=== PATIENT | male | born 1980 | race Caucasian/White ===

== ENCOUNTER → 2017-01-11 | Day surgery (SDC) | payer MEDICARE ==
[~2017-01-11] VITALS: Ht 182.9 cm; Wt 140.5 kg
[~2017-01-11] MED LIST: ARIPIPRAZOLE20 MG PO; AUSTEDO PO; CLONAZEPAM0.5 MG PO; COZAAR50 MG PO; CPAP INH; CYMBALTA60 MG PO; DESYREL100 MG PO; FLEXERIL10 MG PO; LEVOTHROID(SY175 MCG PO; LOPRESSOR25 MG PO; MYSOLINE50 M1 PO; NORCO 5-325 TA1 EACH PO; OMEPRAZOLE40 MG PO; XARELTO20 MG PO
--- NOTE | ~2017-01-11 | OR ---
PATIENT'S NAME: EMILY MARTIN [facility] AGE: 36 Y [address] ROOM: [place] [address] LOCATION: [facility] [place] ADMIT DATE: 01/11/2017 OR/Procedure Report DISCHARGE DATE: FAMILY PHYSICIAN: Diego Vidal MD ATTENDING PHYSICIAN: Delio Heath SURGEON: Delio Heath MD GROUP ACCOUNT DIRECTOR: DATE OF PROCEDURE: 01/11/2017 PREOPERATIVE DIAGNOSES: 1. Left flank pain. 2. Significant microscopic hematuria. 3. Known left nephrolithiasis. 4. Chronic back pain, status post instrumentation and with pain pump. 5. History of Hodgkin disease-remote. 6. Atypical chest pain with past diagnosis of Prinzmetal angina. 7. Marion's chorea. 8. History of spontaneously passed kidney stone. POSTOPERATIVE DIAGNOSIS: 1. Left flank pain. 2. Significant microscopic hematuria. 3. Known left nephrolithiasis. 4. Chronic back pain, status post instrumentation and with pain pump. 5. History of Hodgkin disease-remote. 6. Atypical chest pain with past diagnosis of Prinzmetal angina. 7. Marion's chorea. 8. History of spontaneously passed kidney stone. 9. Left ureteropelvic junction stone. ANESTHESIA: General. INDICATION: This is a 36-year-old young man who has been battling left-sided pain this week. He had a CT scan done which revealed an upper pole, nonobstructing stone. It was felt to be 7 mm. There was no hydronephrosis. His situation is complicated by chronic back pain. He has undergone multiple interventions. He has a pain pump. He was back in the hospital yesterday. He sent down for further evaluation and management. DESCRIPTION OF PROCEDURE: Having obtained his informed consent, the patient was taken to the cystoscopy suite. He was prepped and draped sterilely and in lithotomy position. General anesthesia was administered. The 21-Albanian cystoscope was assembled and guided into the urethra. The course of the urethra was unremarkable. The bladder itself demonstrates no tumors, stones, or foreign bodies. Bladder examination was confirmed with a 70-degree lens. PATIENT'S NAME: EMILY MARTIN [facility] AGE: 36 Y [address] ROOM: [place] [address] LOCATION: [facility] [place] ADMIT DATE: 01/11/2017 OR/Procedure Report DISCHARGE DATE: FAMILY PHYSICIAN: Diego Vidal MD ATTENDING PHYSICIAN: Delio Heath Preliminary survey was undertaken. He has an intrathecal pump in the left lower quadrant with the tubing noted moving cephalad. He has a metal artifact over the spinal column. He has a metal artifact in the area of the distal 3rd right ureter. I cannot appreciate a definite stone over the left renal shadow. Contrast was instilled on the right side first. It goes past the metal artifact noted. There is no dilation. There are no filling defects. The calices were finely cupped. On the left side, we see an obvious filling defect at the UPJ. I suspect he has dropped this stone down. The calices were mildly blunted above it. He may have a predominantly uric acid or radiolucent stone. I passed a guidewire up the right side. It bumps against this filling defect. Once past it, the contrast plus a lot of retained debris and small yellow stone fragments flushed out. He has obviously been obstructed. The stone is at the UPJ. He has been on Xarelto. I do not know that I would be able localized it for ESWL anyway. The plan is to stent it and that will provide some passive dilation and pain relief. We will make arrangements for a followup with a plain film. If we can see the stone, we will proceed with ESWL and stent removal. If not, we can proceed with ureteroscopic approach. Over my guidewire, a 4.8 Multilink stent was placed. We have a nice level of placement cystoscopically and fluoroscopically. There continues to be an ongoing gush of debris. The bladder was drained and the case was concluded. The patient tolerated the procedure well. Blood loss was negligible. No specimens were sent. The patient returned to the outpatient recovery, awake and stable condition. DELIO HEATH MD [facility]/modl /[id number] CC: Diego Vidla MD d: 01/11/17 1119 t: 01/15/17 1355, OPERATIVE SUMMARY
== END ==
LOC: GPOC 01-10 15:00 → GSDC 08:34 → GPOC 15:00
PROC: 0T778DZ Dilation of Left Ureter with Intraluminal Device, Via Natural or Artificial Opening Endoscopic (ICD-10-PCS; principal; 2017-01-11)
DX: N20.2 Calculus of kidney with calculus of ureter (principal); G10 Huntington's disease; G89.29 Other chronic pain; F32.9 Major depressive disorder, single episode, unspecified; I25.10 Atherosclerotic heart disease of native coronary artery without angina pectoris; I25.2 Old myocardial infarction; E78.00 Pure hypercholesterolemia, unspecified; I10 Essential (primary) hypertension; Z98.890 Other specified postprocedural states; Z79.891 Long term (current) use of opiate analgesic
CPT/HCPCS: C1769; C2617; J1956; J2001; J3010; J7030

== ENCOUNTER → 2017-01-29 | Day surgery (SDC) | payer MEDICARE ==
[~2017-01-29] VITALS: Ht 182.9 cm; Wt 136.0 kg
--- NOTE | ~2017-01-29 | OR ---
PATIENT'S NAME: EMILY MARTIN [facility] AGE: 36 Y [address] ROOM: [place] [address] LOCATION: [facility] [place] ADMIT DATE: 01/29/2017 OR/Procedure Report DISCHARGE DATE: FAMILY PHYSICIAN: Diego Vidal MD ATTENDING PHYSICIAN: Delio Heath SURGEON: Delio Heath MD BRAIDING OPERATOR: DATE OF PROCEDURE: 01/29/2017 PREOPERATIVE DIAGNOSES: 1. Left nephrolithiasis. 2. Left retained stent. POSTOPERATIVE DIAGNOSES: 1. Left nephrolithiasis. 2. Left retained stent. PROCEDURE: Cystoscopy with stent exchange with left ureteroscopy. ANESTHESIA: General. INDICATION: This is a 36-year-old young man who had presented 2-3 weeks ago with a left sided stone. He had been up in his collecting system, then dropped down into his ureteropelvic junction. He was stented acutely. He presents at this time for intervention. The stone was difficult to appreciate initially, and had a followup KUB today. I cannot see a stone. I suspect it is primarily uric acid and radiolucent. We had made arrangements for possible ESWL versus ureteroscopic approach. Based on the KUB appearance and the size of the stone, he is better served with ureteroscopy. DESCRIPTION OF PROCEDURE: Having obtained his informed consent, the patient was taken to the cystoscopy suite. He was prepped and draped sterilely and in lithotomy position. General anesthesia was administered. The 21-Bahamian cystoscope was assembled and guided into the urethra. The course of the urethra was unremarkable. The bladder itself demonstrates some inflammatory reaction from the stent. It is otherwise as previous. The stent was grasped and extracted to the meatus. I passed a guidewire up that. I then passed a 2nd safety wire and placed a ureteral access sheath. I then passed the flexible ureteroscope. In spite of having an indwelling stent, the proximal 3rd is still quite tight. Specifically, I cannot get the flexible scope to the ureteropelvic junction. Staying at just below it. I obtained a retrograde through the scope. There was no obvious filling defect at the UPJ. I was not able to get the flexible scope in the collecting PATIENT'S NAME: EMILY MARTIN [facility] AGE: 36 Y [address] ROOM: [place], [place] [address] LOCATION: [facility] [place] ADMIT DATE: 01/29/2017 OR/Procedure Report DISCHARGE DATE: FAMILY PHYSICIAN: Diego Vidal MD ATTENDING PHYSICIAN: Delio Heath system. I removed the flexible scope. We stopped the safety wire in place. Using the semi-rigid scope, I advanced it to see if we could get it to the UPJ. Once again, there is too much tension in the proximal third. I opted to simply replace the stent. We will let the system dilate further. I am then going to simply remove the stent. Hopefully, I will be able to mobilize the stone or at least dropped down to where we can access it. Again, it is not amenable to ESWL, and we cannot get to it ureteroscopically. Therefore, my safety wire was back loaded into the cystoscope. Over that, I passed a 4.8 multilink stent. We have a nice level of placement cystoscopically and fluoroscopically. The patient tolerated the procedure well. Blood loss was negligible. No specimens were sent. The patient returned to the outpatient recovery in awake and stable condition. DELIO HEATH MD [facility]/modl /[id number] CC: Diego Vidal MD d: 01/29/17 1207 t: 02/05/17 1110, OPERATIVE SUMMARY
[2017-01-29 09:29] LABS: BASOPHIL # 0.1 K/uL (0.0-0.2); BASOPHIL % 1.1 %; EOSINOPHIL # 0.7 K/uL (0.0-0.5); EOSINOPHIL % 7.6 %; HEMATOCRIT 42.5 % (37.0-53.0); HEMOGLOBIN 14.8 g/dL (12.0-17.0); IMMATURE GRANULOCYTE % 0.3 %; LYMPHOCYTE # 4.1 K/uL (0.8-4.0); LYMPHOCYTE % 44.2 %; MCHC 34.8 gm/dL (32.0-36.5); MCV 94.7 fl (83.0-98.0); MONOCYTE # 0.9 K/uL (0.0-1.0); MONOCYTE % 9.6 %; MPV 9.3 fl (9.4-12.4); NEUTROPHIL # (ANC) 3.4 K/uL (1.4-9.0); NEUTROPHIL % 37.2 %; NRBC % 0 /100WBC (0-0.00); PLATELET COUNT 438 K/uL (150-450); RBC 4.49 M/uL (4.00-6.00); RDW-CV 13.2 % (11.9-14.6); WBC 9.2 K/uL (4.0-11.0)
[2017-01-29 09:46] LABS: ALBUMIN 3.4 gm/dL (3.5-5.0); ANION GAP 10.5 (10.0-19.0); CALCIUM 8.3 mg/dL (8.5-10.5); CREATININE 1.6 mg/dL (0.6-1.3); POTASSIUM 4.5 mMol/L (3.7-5.1); TOTAL BILIRUBIN 0.6 mg/dL (0.0-1.5)
== END ==
LOC: GSDC 07:00
PROVIDERS: Urology
PROC: 0T768DZ Dilation of Right Ureter with Intraluminal Device, Via Natural or Artificial Opening Endoscopic (ICD-10-PCS; principal; 2017-01-29)
PROC: 0TP98DZ Removal of Intraluminal Device from Ureter, Via Natural or Artificial Opening Endoscopic (ICD-10-PCS; 2017-01-29)
DX: Z46.6 Encounter for fitting and adjustment of urinary device (principal); N20.0 Calculus of kidney; I25.10 Atherosclerotic heart disease of native coronary artery without angina pectoris; K21.9 Gastro-esophageal reflux disease without esophagitis; F32.9 Major depressive disorder, single episode, unspecified; G10 Huntington's disease; E03.9 Hypothyroidism, unspecified; G47.30 Sleep apnea, unspecified; Z98.890 Other specified postprocedural states
CPT/HCPCS: C1769; C2617; J1956; J2001; J7120